=== PATIENT | female | born 2000 | race Two or more races ===

== ENCOUNTER 2022-03-31 01:16 | Emergency (ER) | payer OTHER ==
[2022-03-31 01:52] LABS: BASOPHIL 0.5 % (0-2); EOSINOPHIL 4.2 % (0-5); HCT 36.3 % (37.0-47.0); HGB 12.2 g/dl (12.5-16.0); LYMPHOCYTE 25.9 % (15-48); MCH 30.7 pg (25.0-31.0); MCHC 33.6 g/dL (32.0-36.0); MCV 91.2 fL (78.0-100.0); MONOCYTE 7.5 % (0-12); MPV 8.5 fL (6.0-9.5); NRBC 0; PLT 414 K/uL (150-400); RBC 3.98 M/uL (4.20-5.40); RDW 11.9 % (11.5-14.0); WBC 9.3 K/uL (4.0-10.5)
[2022-03-31 02:09] LABS: BUN/CREAT RATIO (CALC) 14.1 RATIO; CREATININE 0.64 mg/dL (0.51-0.95); POTASSIUM 3.2 mmol/L (3.5-5.1)
== END 2022-03-31 05:05 | disposition home or self-care (01) ==
LOC: FER 01:16
PROVIDERS: Internal Medicine
DX: S70.212A Abrasion, left hip, initial encounter (principal); R07.89 Other chest pain; Z91.010 Allergy to peanuts; V47.6XXA Car passenger injured in collision with fixed or stationary object in traffic accident, initial encounter
CPT/HCPCS: 36415; 70450; 71045; 71260; 72125; 80048; 85025; Q9967